=== PATIENT | male | born 1970 | race Two or more races ===

== ENCOUNTER 2020-10-19 09:56 | Emergency (ER) | payer BC, MEDICAID, OTHER ==
[~2020-10-19] VITALS: Ht 167.6 cm; Wt 81.6 kg
[2020-10-19] MEDS ORDERED: KETOROLAC TROMETH 60MG/2ML VIAL IM ONE (11:30)
[2020-10-19 11:36] VITALS: BP 132/78
== END 2020-10-19 11:36 | disposition home or self-care (01) ==
LOC: ER 09:56
DX: S39.012A Strain of muscle, fascia and tendon of lower back, initial encounter (principal); M54.41 Lumbago with sciatica, right side; X58.XXXA Exposure to other specified factors, initial encounter; Y93.89 Activity, other specified; Y92.89 Other specified places as the place of occurrence of the external cause; Y99.8 Other external cause status